=== PATIENT | female | born 1995 | race Caucasian/White ===

== ENCOUNTER 2018-04-05 10:46 | Emergency (ER) | payer SELFPAY ==
[2018-04-05 10:48] VITALS: BP 127/99; PULSE 93; RESP 17; TEMP 36.8; O2SAT 98; BMI 45.6
--- NOTE | 2018-04-05 11:34 | ED.VISSUMM ---
- ER Visit Summary Date of Service: 04/05/18 Chief Complaint: Lower back pain History of Present Illness: The patient is a 22 F no senior past medical or surgical history. Patient states she works at the [employer] Does lifting and moving of objects. Is developed right lower back pain the last 2 weeks of radiation down her right leg. She denies any bowel or bladder incontinence. She denies any leg weakness. She has never had any back surgery. She denies any falls or trauma. Denies any fever. Physical Examination: Well-appearing young female. Vital signs are stable afebrile. H EENT exam unremarkable. Neck nontender. Lungs clear to auscultation bilaterally. Heart regular rhythm no murmur. Abdomen is nontender normal bowel sounds no peritoneal signs. Overweight. Patient is moving all 4 extremities. Neurovascularly intact. The right lower extremity has positive straight leg raise at 30?. Dorsi and plantar flexion is intact bilaterally. 5 out of 5 motor strength is intact. Normal range of motion. No cauda equina. No saddle anesthesia. Normal medial thigh sensation. Back the spine is nontender she has right SI tenderness consistent with sciatica. Neurologic exam is normal with no focal motor deficits. NIH is 0. Test Results: None Emergency Department Course and Treatment: I am Toradol. Treatment Plan: Naprosyn 500 twice daily for 10 days. Ice to the SI joint. Disposition: Discharge Impression: Acute right sciatica This note was generated with [employer] dictation software. It may contain incorrect words, spelling, and punctuation that were not noted in review of the chart prior to signing ED Disposition - Plan for ED Patient: Chief Complaint: Back Referrals: Care Physician,No Primary [Primary Care Provider] -
--- NOTE | 2018-04-05 11:37 | ED.DCSUM_ITS ---
- ER Visit Summary Date of Service: 04/05/18 Chief Complaint: Lower back pain History of Present Illness: The patient is a 22 F no senior past medical or surgical history. Patient states she works at the [employer]. Does lifting and moving of objects. Is developed right lower back pain the last 2 weeks of radiation down her right leg. She denies any bowel or bladder incontinence. She denies any leg weakness. She has never had any back surgery. She denies any falls or trauma. Denies any fever. Physical Examination: Well-appearing young female. Vital signs are stable afebrile. H EENT exam unremarkable. Neck nontender. Lungs clear to auscultation bilaterally. Heart regular rhythm no murmur. Abdomen is nontender normal bowel sounds no peritoneal signs. Overweight. Patient is moving all 4 extremities. Neurovascularly intact. The right lower extremity has positive straight leg raise at 30?. Dorsi and plantar flexion is intact bilaterally. 5 out of 5 motor strength is intact. Normal range of motion. No cauda equina. No saddle anesthesia. Normal medial thigh sensation. Back the spine is nontender she has right SI tenderness consistent with sciatica. Neurologic exam is normal with no focal motor deficits. NIH is 0. Test Results: None Emergency Department Course and Treatment: I am Toradol. Treatment Plan: Naprosyn 500 twice daily for 10 days. Ice to the SI joint. Disposition: Discharge Impression: Acute right sciatica This note was generated with [employer] dictation software. It may contain incorrect words, spelling, and punctuation that were not noted in review of the chart prior to signing ED Disposition - Plan for ED Patient: Chief Complaint: Back Referrals: Care Physician,No Primary [Primary Care Provider] -
--- NOTE | 2018-04-05 11:37 | ED.DEP ---
ED Disposition - Plan for ED Patient: Disposition: Home or Assisted Living Chief Complaint: Back Instructions: ED Sciatica Prescriptions: Naproxen [Naprosyn] 500 mg PO BID PRN PRN #20 tab PRN Reason: Pain Referrals: Jessica Tejeda [NON-STAFF] - 1 Week if not improving Additional Instructions: Naprosyn for pain and inflammation. Ice pack to right lower back. Return if increasing pain, weakness of the lower extremities, bowel or bladder incontinence or retention or fever.
[2018-04-05] MEDS: Ketorolac 60 MG/2 ML Vial IM (11:52)
== END 2018-04-05 12:09 | disposition home or self-care (01) ==
PROVIDERS: Emergency Provider Emergency Medicine
DX: M54.41 Lumbago with sciatica, right side (principal); Z72.0 Tobacco use
CPT/HCPCS: 96372; 99283